=== PATIENT | male | born 1995 | race Caucasian/White ===

== ENCOUNTER 2016-09-11 14:53 | Emergency (ER) | payer OTHER ==
[~2016-09-11] VITALS: Ht 190.5 cm; Wt 88.7 kg
[2016-09-11 14:59] VITALS: BP 128/62; PULSE 86; RESP 16; TEMP 98.7; O2SAT 98
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
[2016-09-11] MEDS ORDERED: EXTR500C PO (15:11)
[2016-09-11] MEDS ORDERED: ORPH100T99 PO (15:11)
[2016-09-11] MEDS ORDERED: IBUP800T23 PO (15:11)
== END 2016-09-11 15:35 | disposition home or self-care (01) ==
LOC: PHEFT 14:53
DX: S16.1XXA Strain of muscle, fascia and tendon at neck level, initial encounter (principal); S39.012A Strain of muscle, fascia and tendon of lower back, initial encounter; Z72.0 Tobacco use; V89.2XXA Person injured in unspecified motor-vehicle accident, traffic, initial encounter
CPT/HCPCS: 99283